=== PATIENT | male | born 1990 | race Hispanic/Latino ===

== ENCOUNTER 2017-01-28 11:54 | Inpatient (IN) | payer BC ==
--- NOTE | 2017-01-28 12:39 | ED PDOC ---
Upper Extremity Pain/Injury Time Seen by Provider: 01/28/17 12:03 Chief Complaint (Nursing): Upper Extremity Problem/Injury Chief Complaint (Provider): Left Forearm Swelling History Per: Patient History/Exam Limitations: no limitations Onset/Duration Of Symptoms: Days (2 days) Current Symptoms Are (Timing): Still Present Additional Complaint(s): Leif Uribe, a 26 year old male, presents to the ED with atraumatic left forearm swelling, which he has been experiencing for 2 days. The patient states that last week he started boxing training but reports no trauma to the area. He reports that there is no associated pain or numbness. The patient reports that in 2008 he had an ablation surgery for his SVT. Denies chest pain, palpitations and shortness of breath, fever, trauma and history of thromboembolic disease. Past Medical History Reviewed: Historical Data, Nursing Documentation, Vital Signs Vital Signs: Last Vital Signs Temp 98.3 F 01/28/17 11:58 Pulse 97 H 01/28/17 11:58 Resp 18 01/28/17 11:58 BP 130/70 01/28/17 11:58 Pulse Ox 99 01/28/17 11:58 - Medical History PMH: No Chronic Diseases - Surgical History Other surgeries: Ablation surgery for SVT - Family History Family History: States: Unknown Family Hx - Immunization History Hx Tetanus Toxoid Vaccination: No Hx Influenza Vaccination: No Hx Pneumococcal Vaccination: No - Home Medications Home Medications: Ambulatory Orders Medication Instructions Recorded No Known Home Med 01/28/17 - Allergies Allergies/Adverse Reactions: Allergies Allergy/AdvReac Type Severity Reaction Status Date / Time No Known Allergies Allergy Verified 01/28/17 11:57 Review of Systems Constitutional: Negative for: Fever, Other (Denies trauma) Cardiovascular: Negative for: Chest Pain, Palpitations, Other (Denies history of thromboembolic disease.) Respiratory: Negative for: Shortness of Breath Musculoskeletal: Positive for: Other (Left Upper Extremity Swelling.) Physical Exam - Reviewed Nursing Documentation Reviewed: Yes Vital Signs Reviewed: Yes - Physical Exam Appears: Positive for: Non-toxic, No Acute Distress Head Exam: Positive for: ATRAUMATIC, NORMOCEPHALIC Skin: Positive for: Normal Color, Warm, Dry. Negative for: Rash (No rash to upper left extremity.), Cyanosis (No cyanosis to upper left forearm.) Pulses-Radial (L): 2+ Pulses-Radial (R): 2+ Extremity: Positive for: Normal ROM (Full range of motion actively to upper left extremity.), Capillary Refill (Capillary refills less than 2 seconds.), Swelling (Minimal left forearm swelling.), Other (No pitting or erythema to upper left forearm.). Negative for: Tenderness (No tenderness to upper left forearm.), Deformity Neurologic/Psych: Positive for: Alert, Oriented - Laboratory Results Result Diagrams: 01/28/17 14:20 01/28/17 14:20 - ECG O2 Sat by Pulse Oximetry: 99 (RA) Pulse Ox Interpretation: Normal - Radiology X-Ray: Interpreted by Me (L Forearm x-ray) X-Ray Interpretation: No Acute Disease - Progress ED Course And Treament: Pt. evaluated by Dr. Sumner who recommends CPK level. Labs ordered. CPK 9559. IV NS bolus x 2 given. Case d/w Dr. Madrigal, hospitalist covering for Dr. Shaw, and arrangements made for 23 hr observation. Medical Decision Making Medical Decision Makin:03 Initial Impression: 26 year old male presenting with upper left forearm swelling Initial Plan: * RAD Left forearm * US Duplex Upper left extremity vein Scribe Attestation Documented by Dominique Strickland acting as a scribe for Emanuel Nicole PA-C. Scribe Attestation All medical record entries made by the Scribe were at my direction and personally dictated by me. I have reviewed the chart and agree that the record accurately reflects my personal performance of the history, physical exam, medical decision making, and the department course for this patient. I have also personally directed, reviewed, and agree with the discharge instructions and disposition. Disposition - Clinical Impression Clinical Impression: Rhabdomyolysis, Transaminitis - Patient ED Disposition Is Patient to be Admitted: Yes - Disposition Disposition Time: 15:20 Condition: STABLE
--- NOTE | 2017-01-28 13:35 | RAD ---
PROCEDURE: Radiographs of the Left Forearm HISTORY: swelling COMPARISON: None available. TECHNIQUE: Frontal and lateral views obtained. FINDINGS: BONES: No fracture or destructive lesion. JOINT SPACES: Unremarkable. OTHER FINDINGS: None. IMPRESSION: Unremarkable radiographs of the left forearm.
[2017-01-28 14:44] LABS: ALB/GLOB RATIO 1.6 (1.0-2.1); ALKALINE PHOSPHATASE 58 U/L (38-126); ALT/SGPT 294 U/L (21-72); AST/SGOT 301 U/L (17-59); BILIRUBIN,TOTAL 0.5 mg/dl (0.2-1.3); BLOOD UREA NITROGEN 13 mg/dl (9-20); CALCIUM 9.5 mg/dL (8.4-10.2); CARBON DIOXIDE 32 mmol/L (22-30); CHLORIDE 99 mmol/L (98-107); GFR AFRICAN-AMERICAN > 60; GLUCOSE,RANDOM 116 mg/dL (75-110); POTASSIUM 4.6 MMOL/L (3.6-5.0); SODIUM 141 mmol/l (132-148); TOTAL PROTEIN 7.6 G/DL (6.3-8.2)
[2017-01-28 15:02] LABS: BASO % 0.1 % (0.0-2.0); EOS % 0.5 % (0.0-4.0); HEMATOCRIT 43.2 % (35.0-51.0); LYMPH # 1.3 K/uL (1.0-4.3); LYMPH % 18.4 % (20.0-40.0); MEAN CELL VOLUME 89.8 fl (80.0-94.0); MEAN CORPUSCULAR HEMOGLOBIN 29.2 pg (27.0-31.0); MEAN CORPUSCULAR HGB CONC 32.5 g/dL (33.0-37.0); MEAN PLATELET VOLUME 9.8 fl (7.2-11.7); MONO # 0.6 K/uL (0.0-0.8); NEUT # 4.9 K/uL (1.8-7.0); NRBC % 0.1 % (0.0-0.0); RED CELL DISTRIBUTION WIDTH 13.3 % (11.5-14.5); WHITE BLOOD COUNT 6.8 K/uL (4.8-10.8)
[2017-01-28] MEDS ORDERED: Sodium Chloride 0.9% 1,000 ML IV STA ×2 (15:17→15:22)
--- NOTE | 2017-01-28 15:27 | US ---
PROCEDURE: Left Upper Extremity Venous Duplex Exam HISTORY: swelling PRIORS: None. TECHNIQUE: Left upper extremity, internal jugular, subclavian, axillary, brachial, ulnar, radial, basilic and upper cephalic veins were evaluated. Flow was assessed with color Doppler, compressibility, assessment of phasic flow and augmentation response. Report prepared by medical office technologist. FINDINGS: LEFT: 1. Internal Jugular: 1.1. Compressibility - Fully compressible: Thrombus - None : Flow - Phasic: Augmentation -Normal: Reflux - None. 2. Subclavian: 2.1. Compressibility - Fully compressible: Thrombus - None : Flow - Phasic: Augmentation -Normal: Reflux - None. 3. Axillary: 3.1. Compressibility - Fully compressible: Thrombus - None : Flow - Phasic: Augmentation -Normal: Reflux - None. 4. Brachial: 4.1. Compressibility - Fully compressible: Thrombus - None: Flow - Phasic: Augmentation -Normal: Reflux - None. 5. Ulnar: 5.1. Compressibility - Fully compressible: Thrombus - None: Flow - Phasic: Augmentation -Normal: Reflux - None. 6. Radial: 6.1. Compressibility - Fully compressible: Thrombus - None: Flow - Phasic: Augmentation - Normal: Reflux - None. 7. Cephalic: 7.1. Compressibility - Fully compressible: Thrombus - None: Flow - Phasic: Augmentation -Normal: Reflux - None. 8. Basilic: 8.1. Compressibility - Fully compressible: Thrombus - None: Flow - Phasic: Augmentation -Normal: Reflux - None. OTHER FINDINGS: Left: None. IMPRESSION: Left: No evidence of vein thrombosis of the left upper extremity with excellent venous flow.
[2017-01-28 15:42] LABS: RBC URINE 1 /hpf (0-3); URINE BILIRUBIN NEGATIVE (NEGATIVE); URINE BLOOD NEGATIVE (NEGATIVE); URINE COLOR COLORLESS (YELLOW); URINE GLUCOSE (UA) NEG (Normal); URINE KETONE NEGATIVE (NEGATIVE); URINE LEUKOCYTE ESTERASE NEG Leu/uL (Negative); URINE PROTEIN NEGATIVE (NEGATIVE); URINE UROBILINOGEN 0.2-1.0 mg/dL (0.2-1.0); WBC URINE < 1 /hpf (0-5)
[2017-01-28] MEDS: Sodium Chloride 0.9% 1,000 ML IV SCH (17:23)
--- NOTE | 2017-01-28 17:25 | CP.PCM.HP ---
<Kye Gavin - Last Filed: 01/28/17 17:40> History of Present Illness - History of Present Illness History of Present Illness: 26 YO M w/ a h/o SVT s/p ablation in 2008 presents to the ER w/ complaint of increasing in the size of his left arm compared to his right arm. Denies any pain, numbness, tingling, weakness or cold sensation in either of his arms. He recently started working out in the last week. 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 He started working out on Tuesday and noticed a increase in the size of his left forearm on Tuesday, compared to the right arm, and the skin surrounding the left forearm started appearing tighter. He recently started taking a boxing class as well, but only hits a boxing bag and has not had any trauma or hits to himself. Denies blood or tea colored urine. He recently took a trip to [facility] [place] where he states he was dehydrated and had dark yellow colored urine. PMH: None PSH: SVT ablation Allergies: NKDA Med: None F/H: None S/H: Social drinker, is last drink was on Tuesday, denies any other recreational drug use. Present on Admission - Present on Admission Any Indicators Present on Admission: No History of DVT/PE: No History of Uncontrolled Diabetes: No Urinary Catheter: No Decubitus Ulcer Present: No Review of Systems - Review of Systems All systems: reviewed and no additional remarkable complaints except Past Patient History - Past Social History Smoking Status: Never Smoked - CARDIAC Other/Comment: hx svt - PSYCHIATRIC Hx Substance Use: No - SURGICAL HISTORY Other/Comment: cardiac ablation - ANESTHESIA Hx Anesthesia: Yes Hx Anesthesia Reactions: No Meds Allergies/Adverse Reactions: Allergies Allergy/AdvReac Type Severity Reaction Status Date / Time No Known Allergies Allergy Verified 01/28/17 11:57 Physical Exam - Constitutional Appears: No Acute Distress - Head Exam Head Exam: NORMAL INSPECTION - Eye Exam Eye Exam: Normal appearance - Neck Exam Neck exam: Positive for: Normal Inspection - Respiratory Exam Respiratory Exam: Clear to Auscultation Bilateral, NORMAL BREATHING PATTERN - Cardiovascular Exam Cardiovascular Exam: REGULAR RHYTHM, +S1, +S2 - GI/Abdominal Exam GI & Abdominal Exam: Normal Bowel Sounds, Soft. absent: Tenderness - Extremities Exam Extremities exam: Positive for: normal inspection. Negative for: tenderness Additional comments: Minimal left arm swelling. No cynosis to left arm. No tenderness, No erythema. Sensation intact - Pulses 2+ B/L Capilary refill <2 sec b/l - Neurological Exam Neurological exam: Alert, CN II-XII Intact, Oriented x3 Additional comments: Motor and sensation grossly intact Results - Vital Signs Recent Vital Signs: Last Vital Signs Temp 98.1 F 01/28/17 16:50 Pulse 77 01/28/17 16:50 Resp 18 01/28/17 16:50 BP 126/77 01/28/17 16:50 Pulse Ox 98 01/28/17 16:48 - Labs Result Diagrams: 01/28/17 14:20 01/28/17 14:20 Labs: Laboratory Results - last 24 hr 01/28/17 15:25 Urine Color Colorless Urine Clarity Clear Urine pH 7.0 Ur Specific [place] < 1.005 Urine Protein Negative Urine Glucose (UA) Neg Urine Ketones Negative Urine Blood Negative Urine Nitrate Negative Urine Bilirubin Negative Urine Urobilinogen 0.2-1.0 Ur Leukocyte Esterase Neg Urine RBC (Auto) 1 Urine Microscopic WBC < 1 Assessment & Plan - Assessment and Plan (Free Text) Assessment: 26 YO M which presents to the ER with increase in size of his left forearm, is found to have Rhabdomyolysis 1) Rhabdomyolysis - Most likely secondary to exercise - IV fluids: Normal saline @100ml after completing 2 L of fluids from ER - F/U w/ urine myoglobin - F/U w/ morning CPK - Low protein diet 2) Hx of SVT S/P ablation - Monitor Vitals Q8 3) Elevated AST/ALT - Could be secondary to exercise - Monitor LFT - Acute Hepatitis panel 4) Prophylaxis: - Pepcid 20 mg PO BID - Heparin 5,000 Q8H - SCD <Milton Madrigal - Last Filed: 01/28/17 19:38> Results - Vital Signs Recent Vital Signs: Last Vital Signs Temp 98.1 F 01/28/17 17:00 Pulse 84 01/28/17 17:00 Resp 18 01/28/17 17:46 BP 125/77 01/28/17 17:00 Pulse Ox 99 01/28/17 17:00 - Labs Result Diagrams: 01/28/17 14:20 01/28/17 14:20 Labs: Laboratory Results - last 24 hr 01/28/17 15:25 Urine Color Colorless Urine Clarity Clear Urine pH 7.0 Ur Specific [place] < 1.005 Urine Protein Negative Urine Glucose (UA) Neg Urine Ketones Negative Urine Blood Negative Urine Nitrate Negative Urine Bilirubin Negative Urine Urobilinogen 0.2-1.0 Ur Leukocyte Esterase Neg Urine RBC (Auto) 1 Urine Microscopic WBC < 1 Attending/Attestation - Attestation I have personally seen and examined this patient.: Yes I have fully participated in the care of the patient.: Yes I have reviewed all pertinent clinical information: Yes Notes (Text): 01/28/17 19:36 Patient was seen and examined with Diesel Service Journeyman History, Physical, Assessment, Plan, and Orders were thoroughly gone over with [employer] Service Journeyman Dr. Gavin. Milton Madrigal D.O.
[2017-01-29] MEDS: Sodium Chloride 0.9% 1,000 ML IV SCH ×5 (04:13→23:10)
--- NOTE | 2017-01-29 09:59 | CP.PCM.PN ---
Subjective - Date & Time of Evaluation Date of Evaluation: 01/29/17 Time of Evaluation: 09:55 - Subjective Subjective: pt seen and examined bedside, feeling better arms slightly sore, however no cp no sob urinating well vss nad Objective - Vital Signs/Intake and Output Vital Signs (last 24 hours): Temp Pulse Resp BP Pulse Ox 97.9 F 79 18 129/67 100 01/29/17 08:15 01/29/17 08:15 01/29/17 08:15 01/29/17 08:15 01/29/17 08:15 - Medications Medications: Current Medications Famotidine (Pepcid) 20 mg PO BID [facility] Last Admin: 01/28/17 17:24 Dose: 20 mg Heparin Sodium (Porcine) (Heparin) 5,000 units SC Q8 [facility] PRN Reason: Protocol Last Admin: 01/29/17 01:21 Dose: 5,000 units Sodium Chloride (Sodium Chloride 0.9%) 1,000 mls @ 250 mls/hr IV .Q4H [facility] Stop: 01/29/17 16:36 - Constitutional Appears: Non-toxic, No Acute Distress - Head Exam Head Exam: ATRAUMATIC, NORMOCEPHALIC - Eye Exam Eye Exam: EOMI, Normal appearance, PERRL Pupil Exam: NORMAL ACCOMODATION - ENT Exam ENT Exam: Mucous Membranes Moist, Normal Oropharynx - Neck Exam Neck Exam: Full ROM, Normal Inspection - Respiratory Exam Respiratory Exam: Clear to Ausculation Bilateral, NORMAL BREATHING PATTERN - Cardiovascular Exam Cardiovascular Exam: RRR, +S1, +S2 - GI/Abdominal Exam GI & Abdominal Exam: Soft, Normal Bowel Sounds. absent: Tenderness, Mass - Extremities Exam Extremities Exam: Normal Capillary Refill, Normal Inspection - Back Exam Back Exam: absent: CVA tenderness (L), CVA tenderness (R) - Neurological Exam Neurological Exam: Alert, Awake, Oriented x3 - Psychiatric Exam Psychiatric exam: Normal Affect, Normal Mood - Skin Skin Exam: Dry, Warm Assessment and Plan - Assessment and Plan (Free Text) Plan: 26 YO M which presents to the ER with increase in size of his left forearm, is found to have Rhabdomyolysis 1) Rhabdomyolysis - secondary to exercise - IV fluids: Normal saline @250 ml - received 2 L in ER - F/U w/ morning CPK - Low protein diet - CK improved today to 6K will repeat tomrrow 2) Hx of SVT S/P ablation - Monitor Vitals Q8 3) Elevated AST/ALT - Could be secondary to exercise - Monitor LFT - Acute Hepatitis panel 4) Prophylaxis: - Pepcid 20 mg PO BID - Heparin 5,000 Q8H - SCD
[2017-01-30] MEDS: Sodium Chloride 0.9% 1,000 ML IV SCH ×5 (05:42→22:08)
[2017-01-30 06:18] LABS: ALKALINE PHOSPHATASE 50 U/L (38-126); ALT/SGPT 178 U/L (21-72); AST/SGOT 99 U/L (17-59); BILIRUBIN,TOTAL < 0.1 mg/dl (0.2-1.3); BLOOD UREA NITROGEN 10 mg/dl (9-20); CALCIUM 8.5 mg/dL (8.4-10.2); CARBON DIOXIDE 27 mmol/L (22-30); CHLORIDE 107 mmol/L (98-107); GFR AFRICAN-AMERICAN > 60; GLUCOSE,RANDOM 90 mg/dL (75-110); POTASSIUM 4.3 MMOL/L (3.6-5.0); SODIUM 142 mmol/l (132-148); TOTAL PROTEIN 5.9 G/DL (6.3-8.2)
[2017-01-30 06:19] LABS: ALB/GLOB RATIO 1.5 (1.0-2.1)
--- NOTE | 2017-01-30 09:07 | CP.PCM.DIS ---
Provider - Provider Date of Admission: 01/29/17 09:02 Attending physician: Milton Madrigal MD Time Spent in preparation of Discharge (in minutes): 20 Diagnosis - Discharge Diagnosis (1) Rhabdomyolysis Status: Acute (2) Transaminitis Status: Acute Hospital Course - Lab Results Lab Results: Most Recent Lab Values WBC 6.8 K/uL (4.8-10.8) 01/28/17 14:20 RBC 4.81 Mil/uL (4.40-5.90) 01/28/17 14:20 Hgb 14.1 g/dL (12.0-18.0) 01/28/17 14:20 Hct 43.2 % (35.0-51.0) 01/28/17 14:20 MCV 89.8 fl (80.0-94.0) 01/28/17 14:20 MCH 29.2 pg (27.0-31.0) 01/28/17 14:20 MCHC 32.5 g/dL (33.0-37.0) L 01/28/17 14:20 RDW 13.3 % (11.5-14.5) 01/28/17 14:20 Plt Count 148 K/uL (130-400) 01/28/17 14:20 MPV 9.8 fl (7.2-11.7) 01/28/17 14:20 Neut % (Auto) 72.0 % (50.0-75.0) 01/28/17 14:20 Lymph % (Auto) 18.4 % (20.0-40.0) L 01/28/17 14:20 Jenkins % (Auto) 9.0 % (0.0-10.0) 01/28/17 14:20 Eos % (Auto) 0.5 % (0.0-4.0) 01/28/17 14:20 Baso % (Auto) 0.1 % (0.0-2.0) 01/28/17 14:20 Neut # 4.9 K/uL (1.8-7.0) 01/28/17 14:20 Lymph # 1.3 K/uL (1.0-4.3) 01/28/17 14:20 Jenkins # 0.6 K/uL (0.0-0.8) 01/28/17 14:20 Eos # 0.0 K/uL (0.0-0.7) 01/28/17 14:20 Baso # 0.0 K/uL (0.0-0.2) 01/28/17 14:20 Sodium 142 mmol/l (132-148) 01/30/17 05:50 Potassium 4.3 MMOL/L (3.6-5.0) 01/30/17 05:50 Chloride 107 mmol/L (98-107) 01/30/17 05:50 Carbon Dioxide 27 mmol/L (22-30) 01/30/17 05:50 Anion Gap 12 (10-20) 01/30/17 05:50 BUN 10 mg/dl (9-20) 01/30/17 05:50 Creatinine 0.8 mg/dL (0.8-1.5) 01/30/17 05:50 Est GFR ( Amer) > 60 01/30/17 05:50 Est GFR (Non-Af Amer) > 60 01/30/17 05:50 Random Glucose 90 mg/dL (75-110) 01/30/17 05:50 Calcium 8.5 mg/dL (8.4-10.2) 01/30/17 05:50 Total Bilirubin < 0.1 mg/dl (0.2-1.3) L 01/30/17 05:50 AST 99 U/L (17-59) H D 01/30/17 05:50 ALT 178 U/L (21-72) H D 01/30/17 05:50 Alkaline Phosphatase 50 U/L (38-126) 01/30/17 05:50 Total Creatine Kinase 2520 U/L (55-170) H 01/30/17 05:50 Myoglobin 318 mcg/L (< or = 95) H 01/28/17 15:30 Total Protein 5.9 G/DL (6.3-8.2) L 01/30/17 05:50 Albumin 3.5 g/dL (3.5-5.0) D 01/30/17 05:50 Globulin 2.4 gm/dL (2.2-3.9) 01/30/17 05:50 Albumin/Globulin Ratio 1.5 (1.0-2.1) 01/30/17 05:50 Urine Color Colorless (YELLOW) 01/28/17 15:25 Urine Clarity Clear (Clear) 01/28/17 15:25 Urine pH 7.0 (5.0-8.0) 01/28/17 15:25 Ur Specific [place] < 1.005 (1.003-1.030) 01/28/17 15:25 Urine Protein Negative mg/dL (NEGATIVE) 01/28/17 15:25 Urine Glucose (UA) Neg mg/dL (Normal) 01/28/17 15:25 Urine Ketones Negative mg/dL (NEGATIVE) 01/28/17 15:25 Urine Blood Negative (NEGATIVE) 01/28/17 15:25 Urine Nitrate Negative (NEGATIVE) 01/28/17 15:25 Urine Bilirubin Negative (NEGATIVE) 01/28/17 15:25 Urine Urobilinogen 0.2-1.0 mg/dL (0.2-1.0) 01/28/17 15:25 Ur Leukocyte Esterase Neg Magui/uL (Negative) 01/28/17 15:25 Urine RBC (Auto) 1 /hpf (0-3) 01/28/17 15:25 Urine Microscopic WBC < 1 /hpf (0-5) 01/28/17 15:25 Hepatitis A IgM Ab Negative (NEGATIVE) 01/28/17 16:00 Hep Bs Antigen Negative (NEGATIVE) 01/28/17 16:00 Hep B Core IgM Ab Negative (NEGATIVE) 01/28/17 16:00 Hepatitis C Antibody Negative (NEGATIVE) 01/28/17 16:00 - Hospital Course Hospital Course: 26M PMH h/o SVT s/p ablation in 2008 presented to the ER w/ complaint of increasing in the size of his left arm compared to his right arm. Denies any pain, numbness, tingling, weakness or cold sensation in either of his arms. He recently started working out in the last week. 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 He started working out on Tuesday and noticed a increase in the size of his left forearm on Tuesday, compared to the right arm, and the skin surrounding the left forearm started appearing tighter. He recently started taking a boxing class as well, but only hits a boxing bag and has not had any trauma or hits to himself. Denies blood or tea colored urine. He recently took a trip to [facility] where he states he was dehydrated and had dark yellow colored urine. 1) Rhabdomyolysis with Arm pain and swelling - secondary to exercise, NV intact. - IV fluids: Normal saline @250 ml - received 2 L in ER - CK trended down nicely - Low protein diet 2) Hx of SVT S/P ablation - Monitor Vitals Q8 - stable 3) Elevated AST/ALT - Could be secondary to exercise - trending down nicely - follow up with PCP Discharge Exam - Head Exam Head Exam: ATRAUMATIC, NORMOCEPHALIC - Eye Exam Eye Exam: EOMI, Normal appearance, PERRL Pupil Exam: NORMAL ACCOMODATION - ENT Exam ENT Exam: Mucous Membranes Moist, Normal Oropharynx - Neck Exam Neck exam: Full Rom, Normal Inspection - Respiratory Exam Respiratory Exam: Clear to PA & Lateral, NORMAL BREATHING PATTERN - Cardiovascular Exam Cardiovascular Exam: RRR, +S1, +S2 - GI/Abdominal Exam GI & Abdominal Exam: Normal Bowel Sounds, Soft. absent: Mass, Organomegaly, Tenderness - Extremities Exam Extremities exam: normal capillary refill, pedal pulses present - Back Exam Back exam: absent: CVA tenderness (L), CVA tenderness (R) - Neurological Exam Neurological exam: Alert, Oriented x3 - Psychiatric Exam Psychiatric exam: Normal Affect, Normal Mood - Skin Skin Exam: Dry, Warm Discharge Plan - Follow Up Plan Condition: STABLE Disposition: HOME/ ROUTINE Additional Instructions: Patient to resume activity as tolerated. Drink plenty of water daily. No medications on discharge. Follow up with primary care physician. If you do not have one, follow up at the [facility]. Return to ER if condition worsens, or new symptoms arise. Referrals: [facility] [Provider Group]
--- NOTE | 2017-01-30 17:01 | CP.PCM.PN ---
Subjective - Date & Time of Evaluation Date of Evaluation: 01/30/17 Time of Evaluation: 16:59 - Subjective Subjective: patient seen examined bedside. doign well, ambulating awaiting CK levels to decrease. continue on aggressive hydration. will lasix x1 for edema. vss nad. Objective - Vital Signs/Intake and Output Vital Signs (last 24 hours): Temp Pulse Resp BP Pulse Ox 98.2 F 68 20 118/71 97 01/30/17 08:19 01/30/17 08:19 01/30/17 08:19 01/30/17 08:19 01/30/17 08:19 - Medications Medications: Current Medications Famotidine (Pepcid) 20 mg PO BID [facility] Last Admin: 01/30/17 08:45 Dose: 20 mg Heparin Sodium (Porcine) (Heparin) 5,000 units SC Q8 [facility] PRN Reason: Protocol Last Admin: 01/30/17 08:45 Dose: 5,000 units Sodium Chloride (Sodium Chloride 0.9%) 1,000 mls @ 250 mls/hr IV .Q4H [facility] Stop: 01/30/17 22:47 Last Admin: 01/30/17 13:44 Dose: Not Given - Labs Labs: 01/30/17 05:50 - Constitutional Appears: Non-toxic, No Acute Distress - Head Exam Head Exam: ATRAUMATIC, NORMOCEPHALIC - Eye Exam Eye Exam: EOMI, Normal appearance, PERRL Pupil Exam: NORMAL ACCOMODATION - ENT Exam ENT Exam: Mucous Membranes Moist, Normal Oropharynx - Neck Exam Neck Exam: Full ROM, Normal Inspection - Respiratory Exam Respiratory Exam: Clear to Ausculation Bilateral, NORMAL BREATHING PATTERN - Cardiovascular Exam Cardiovascular Exam: RRR, +S1, +S2 - GI/Abdominal Exam GI & Abdominal Exam: Soft, Normal Bowel Sounds. absent: Tenderness, Mass, Organomegaly - Extremities Exam Extremities Exam: Normal Capillary Refill. absent: Pedal Edema - Back Exam Back Exam: absent: CVA tenderness (L), CVA tenderness (R) - Neurological Exam Neurological Exam: Alert, Awake, Normal Gait, Oriented x3 - Psychiatric Exam Psychiatric exam: Normal Affect, Normal Mood - Skin Skin Exam: Dry, Warm Assessment and Plan (1) Rhabdomyolysis Status: Acute (2) Transaminitis Status: Acute - Assessment and Plan (Free Text) Plan: 26M PMH h/o SVT s/p ablation in 2008 presented to the ER w/ complaint of increasing in the size of his left arm compared to his right arm. Denies any pain, numbness, tingling, weakness or cold sensation in either of his arms. He recently started working out in the last week. 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 He started working out on Tuesday and noticed a increase in the size of his left forearm on Tuesday, compared to the right arm, and the skin surrounding the left forearm started appearing tighter. He recently started taking a boxing class as well, but only hits a boxing bag and has not had any trauma or hits to himself. Denies blood or tea colored urine. He recently took a trip to [facility] where he states he was dehydrated and had dark yellow colored urine. 1) Rhabdomyolysis with Arm pain and swelling - secondary to exercise, NV intact. - IV fluids: Normal saline @250 ml , lasix x1 for mild edema - received 2 L in ER - CK trended down nicely, however still over 2K - repeat CPK again tomorrow - Low protein diet 2) Hx of SVT S/P ablation - Monitor Vitals Q8 - stable 3) Elevated AST/ALT - Could be secondary to exercise - trending down nicely - follow up with PCP
[2017-01-31] MEDS: Sodium Chloride 0.9% 1,000 ML IV SCH ×4 (00:24→12:23)
[2017-01-31 06:49] LABS: ALB/GLOB RATIO 1.4 (1.0-2.1); ALKALINE PHOSPHATASE 47 U/L (38-126); ALT/SGPT 164 U/L (21-72); AST/SGOT 88 U/L (17-59); BILIRUBIN,TOTAL 0.3 mg/dl (0.2-1.3); BLOOD UREA NITROGEN 13 mg/dl (9-20); CALCIUM 8.5 mg/dL (8.4-10.2); CARBON DIOXIDE 27 mmol/L (22-30); CHLORIDE 105 mmol/L (98-107); GFR AFRICAN-AMERICAN > 60; GLUCOSE,RANDOM 89 mg/dL (75-110); POTASSIUM 4.1 MMOL/L (3.6-5.0); SODIUM 141 mmol/l (132-148)
--- NOTE | 2017-01-31 16:26 | CP.PCM.DIS ---
Provider - Provider Date of Admission: 01/29/17 09:02 Attending physician: Milton Madrigal MD Time Spent in preparation of Discharge (in minutes): 30 Diagnosis - Discharge Diagnosis (1) Rhabdomyolysis Status: Acute (2) Transaminitis Status: Acute Hospital Course - Lab Results Lab Results: Most Recent Lab Values WBC 6.8 K/uL (4.8-10.8) 01/28/17 14:20 RBC 4.81 Mil/uL (4.40-5.90) 01/28/17 14:20 Hgb 14.1 g/dL (12.0-18.0) 01/28/17 14:20 Hct 43.2 % (35.0-51.0) 01/28/17 14:20 MCV 89.8 fl (80.0-94.0) 01/28/17 14:20 MCH 29.2 pg (27.0-31.0) 01/28/17 14:20 MCHC 32.5 g/dL (33.0-37.0) L 01/28/17 14:20 RDW 13.3 % (11.5-14.5) 01/28/17 14:20 Plt Count 148 K/uL (130-400) 01/28/17 14:20 MPV 9.8 fl (7.2-11.7) 01/28/17 14:20 Neut % (Auto) 72.0 % (50.0-75.0) 01/28/17 14:20 Lymph % (Auto) 18.4 % (20.0-40.0) L 01/28/17 14:20 [place] % (Auto) 9.0 % (0.0-10.0) 01/28/17 14:20 Eos % (Auto) 0.5 % (0.0-4.0) 01/28/17 14:20 Baso % (Auto) 0.1 % (0.0-2.0) 01/28/17 14:20 Neut # 4.9 K/uL (1.8-7.0) 01/28/17 14:20 Lymph # 1.3 K/uL (1.0-4.3) 01/28/17 14:20 [place] # 0.6 K/uL (0.0-0.8) 01/28/17 14:20 Eos # 0.0 K/uL (0.0-0.7) 01/28/17 14:20 Baso # 0.0 K/uL (0.0-0.2) 01/28/17 14:20 Sodium 141 mmol/l (132-148) 01/31/17 05:35 Potassium 4.1 MMOL/L (3.6-5.0) 01/31/17 05:35 Chloride 105 mmol/L (98-107) 01/31/17 05:35 Carbon Dioxide 27 mmol/L (22-30) 01/31/17 05:35 Anion Gap 13 (10-20) 01/31/17 05:35 BUN 13 mg/dl (9-20) 01/31/17 05:35 Creatinine 0.9 mg/dL (0.8-1.5) 01/31/17 05:35 Est GFR ( Amer) > 60 01/31/17 05:35 Est GFR (Non-Af Amer) > 60 01/31/17 05:35 Random Glucose 89 mg/dL (75-110) 01/31/17 05:35 Calcium 8.5 mg/dL (8.4-10.2) 01/31/17 05:35 Total Bilirubin 0.3 mg/dl (0.2-1.3) 01/31/17 05:35 AST 88 U/L (17-59) H 01/31/17 05:35 ALT 164 U/L (21-72) H 01/31/17 05:35 Alkaline Phosphatase 47 U/L (38-126) 01/31/17 05:35 Total Creatine Kinase 1147 U/L (55-170) H 01/31/17 15:25 Myoglobin 318 mcg/L (< or = 95) H 01/28/17 15:30 Total Protein 6.0 G/DL (6.3-8.2) L 01/31/17 05:35 Albumin 3.6 g/dL (3.5-5.0) 01/31/17 05:35 Globulin 2.5 gm/dL (2.2-3.9) 01/31/17 05:35 Albumin/Globulin Ratio 1.4 (1.0-2.1) 01/31/17 05:35 Urine Color Colorless (YELLOW) 01/28/17 15:25 Urine Clarity Clear (Clear) 01/28/17 15:25 Urine pH 7.0 (5.0-8.0) 01/28/17 15:25 Ur Specific [place] < 1.005 (1.003-1.030) 01/28/17 15:25 Urine Protein Negative mg/dL (NEGATIVE) 01/28/17 15:25 Urine Glucose (UA) Neg mg/dL (Normal) 01/28/17 15:25 Urine Ketones Negative mg/dL (NEGATIVE) 01/28/17 15:25 Urine Blood Negative (NEGATIVE) 01/28/17 15:25 Urine Nitrate Negative (NEGATIVE) 01/28/17 15:25 Urine Bilirubin Negative (NEGATIVE) 01/28/17 15:25 Urine Urobilinogen 0.2-1.0 mg/dL (0.2-1.0) 01/28/17 15:25 Ur Leukocyte Esterase Neg Magui/uL (Negative) 01/28/17 15:25 Urine RBC (Auto) 1 /hpf (0-3) 01/28/17 15:25 Urine Microscopic WBC < 1 /hpf (0-5) 01/28/17 15:25 Hepatitis A IgM Ab Negative (NEGATIVE) 01/28/17 16:00 Hep Bs Antigen Negative (NEGATIVE) 01/28/17 16:00 Hep B Core IgM Ab Negative (NEGATIVE) 01/28/17 16:00 Hepatitis C Antibody Negative (NEGATIVE) 01/28/17 16:00 - Hospital Course Hospital Course: 26M PMH h/o SVT s/p ablation in 2008 presented to the ER w/ complaint of increasing in the size of his left arm compared to his right arm. Denies any pain, numbness, tingling, weakness or cold sensation in either of his arms. He recently started working out in the last week. 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 He started working out on Tuesday and noticed a increase in the size of his left forearm on Tuesday, compared to the right arm, and the skin surrounding the left forearm started appearing tighter. He recently started taking a boxing class as well, but only hits a boxing bag and has not had any trauma or hits to himself. Denies blood or tea colored urine. He recently took a trip to [facility] where he states he was dehydrated and had dark yellow colored urine. 1) Rhabdomyolysis with Arm pain and swelling - secondary to exercise, NV intact. - IV fluids: Normal saline @250 ml , lasix x1 for mild edema - received 2 L in ER - CK trended down nicely, currently appx 1100 STABLE FOR DISCHARGE HOME - repeat CPK again tomorrow - Low protein diet 2) Hx of SVT S/P ablation - Monitor Vitals Q8 - stable 3) Elevated AST/ALT - Could be secondary to exercise - trending down nicely - follow up with PCP Discharge Exam - Head Exam Head Exam: ATRAUMATIC, NORMOCEPHALIC - Eye Exam Eye Exam: EOMI, Normal appearance, PERRL Pupil Exam: NORMAL ACCOMODATION - ENT Exam ENT Exam: Mucous Membranes Moist, Normal Oropharynx - Respiratory Exam Respiratory Exam: Clear to PA & Lateral, NORMAL BREATHING PATTERN, UNREMARKABLE - Cardiovascular Exam Cardiovascular Exam: RRR, +S1, +S2. absent: Gallop, Rubs - GI/Abdominal Exam GI & Abdominal Exam: Normal Bowel Sounds, Soft. absent: Mass, Organomegaly, Tenderness - Extremities Exam Extremities exam: normal capillary refill, pedal pulses present - Back Exam Back exam: absent: CVA tenderness (L), CVA tenderness (R) - Neurological Exam Neurological exam: Alert, Oriented x3 - Psychiatric Exam Psychiatric exam: Normal Affect, Normal Mood - Skin Skin Exam: Dry, Warm Discharge Plan - Follow Up Plan Condition: STABLE Disposition: HOME/ ROUTINE Additional Instructions: Patient to resume activity as tolerated. Drink plenty of water daily. No medications on discharge. Follow up with primary care physician. If you do not have one, follow up at the [facility]. Return to ER if condition worsens, or new symptoms arise. Referrals: [facility] [Provider Group]
[2017-01-31 16:34] VITALS: BP 117/69; PULSE 79; RESP 18; TEMP 98.6; O2SAT 99
== END 2017-01-31 17:35 | disposition home or self-care (01) | DRG 558 ==
LOC: H.ER 11:54 → H.ERHOLD 15:20 → H.MEDSURG1 17:02 → OBSVTOIN 01-29 09:02
PROVIDERS: ADMIT Family Medicine; ATTEND Family Medicine
DX: M62.82 Rhabdomyolysis (principal); R74.0 Nonspecific elevation of levels of transaminase and lactic acid dehydrogenase [LDH]; R79.89 Other specified abnormal findings of blood chemistry

== ENCOUNTER 2017-03-31 20:15 | Observation (INO) | payer BC ==
[2017-03-31] MEDS ORDERED: Sodium Chloride 0.9% 1,000 ML IV STA (20:37)
[2017-03-31 21:04] LABS: BASO % 0.1 % (0.0-2.0); EOS # 0.1 K/uL (0.0-0.7); EOS % 0.8 % (0.0-4.0); HEMOGLOBIN 13.9 g/dL (12.0-18.0); LYMPH # 1.8 K/uL (1.0-4.3); LYMPH % 27.1 % (20.0-40.0); MEAN CELL VOLUME 89.6 fl (80.0-94.0); MEAN CORPUSCULAR HEMOGLOBIN 29.6 pg (27.0-31.0); MEAN CORPUSCULAR HGB CONC 33.1 g/dL (33.0-37.0); MONO # 0.9 K/uL (0.0-0.8); MONO % 13.2 % (0.0-10.0); NEUT # 3.8 K/uL (1.8-7.0); NEUT % 58.8 % (50.0-75.0); RBC 4.71 Mil/uL (4.40-5.90); RED CELL DISTRIBUTION WIDTH 13.5 % (11.5-14.5); WHITE BLOOD COUNT 6.5 K/uL (4.8-10.8)
[2017-03-31 21:12] LABS: URINE BILIRUBIN NEGATIVE (NEGATIVE); URINE BLOOD NEGATIVE (NEGATIVE); URINE CLARITY CLEAR (Clear); URINE COLOR COLORLESS (YELLOW); URINE GLUCOSE (UA) NEG (Normal); URINE LEUKOCYTE ESTERASE NEG Leu/uL (Negative); URINE NITRATE NEGATIVE (NEGATIVE); URINE PROTEIN NEGATIVE (NEGATIVE); URINE UROBILINOGEN 0.2-1.0 mg/dL (0.2-1.0)
[2017-03-31 21:15] LABS: ALB/GLOB RATIO 1.7 (1.0-2.1); ALBUMIN 4.6 g/dL (3.5-5.0); ALT/SGPT 49 U/L (21-72); AST/SGOT 50 U/L (17-59); BLOOD UREA NITROGEN 17 mg/dl (9-20); CALCIUM 9.7 mg/dL (8.4-10.2); GFR AFRICAN-AMERICAN > 60; GFR NON-AFRICAN AMERICAN > 60
--- NOTE | 2017-03-31 21:30 | ED PDOC ---
Lower Extremity Pain/Injury Time Seen by Provider: 03/31/17 20:23 Chief Complaint (Nursing): Lower Extremity Problem/Injury Chief Complaint (Provider): B/L Quadricep pain History Per: Patient History/Exam Limitations: no limitations Onset/Duration Of Symptoms: Hrs Current Symptoms Are (Timing): Still Present Additional Complaint(s): Leif Uribe, a 26 year old male, who has a past medical history of rhabdomyalgia and SVT post ablation presents to the ED complaining of bilateral quadricep soreness x1 day. The patient states that 3 months ago he was admitted for rhabdomyalgia. He reports that he has modified his exercise regimen and only began to do squats today. The patient reports that his soreness is out of proportion for the amount of exertion performed. Denies swelling to extremities , fever, cough, abdominal pain, chest pain, nausea, vomiting, diarrhea. Patient states he has been drinking adequate amounts of water. Past Medical History Reviewed: Historical Data, Nursing Documentation, Vital Signs Vital Signs: Last Vital Signs Temp 97.3 F L 03/31/17 20:17 Pulse 71 03/31/17 20:17 Resp 14 03/31/17 20:17 BP 137/67 03/31/17 20:17 Pulse Ox 100 03/31/17 20:17 - Medical History PMH: Denies: Chronic Kidney Disease Other PMH: Rhabdomyalgia, SVT post ablation - Surgical History Surgical History: No Surg Hx - Family History Family History: States: Unknown Family Hx - Social History Current smoker - smoking cessation education provided: No Alcohol: None Drugs: Denies - Immunization History Hx Tetanus Toxoid Vaccination: No Hx Influenza Vaccination: No Hx Pneumococcal Vaccination: No - Home Medications Home Medications: Ambulatory Orders Medication Instructions Recorded No Known Home Med 01/28/17 - Allergies Allergies/Adverse Reactions: Allergies Allergy/AdvReac Type Severity Reaction Status Date / Time No Known Allergies Allergy Verified 03/31/17 21:36 Review of Systems ROS Statement: Except As Marked, All Systems Reviewed And Found Negative Constitutional: Negative for: Fever Cardiovascular: Negative for: Chest Pain Respiratory: Negative for: Cough Gastrointestinal: Negative for: Nausea, Vomiting, Diarrhea Musculoskeletal: Positive for: Other (b/l quadricep soreness) Physical Exam - Reviewed Nursing Documentation Reviewed: Yes Vital Signs Reviewed: Yes - Physical Exam Appears: Positive for: Non-toxic, No Acute Distress Head Exam: Positive for: ATRAUMATIC, NORMAL INSPECTION, NORMOCEPHALIC Skin: Positive for: Normal Color, Warm, Dry. Negative for: Rash Eye Exam: Positive for: Normal appearance, EOMI, PERRL ENT: Positive for: Normal ENT Inspection Neck: Positive for: Normal, Painless ROM, Supple Cardiovascular/Chest: Positive for: Regular Rate, Rhythm, Chest Non Tender. Negative for: Murmur, Tachycardia Respiratory: Positive for: Normal Breath Sounds. Negative for: Crackles, Rales , Rhonchi, Wheezing, Respiratory Distress Gastrointestinal/Abdominal: Positive for: Normal Exam, Bowel Sounds, Soft. Negative for: Tenderness, Mass, Guarding, Rebound Back: Positive for: Normal Inspection. Negative for: L CVA Tenderness, R CVA Tenderness, Vertebral Tenderness Extremity: Positive for: Normal ROM, Tenderness (bilateral quadricep soreness). Negative for: Pedal Edema, Calf Tenderness, Deformity, Swelling Neurologic/Psych: Positive for: Alert, Oriented, Gait - Laboratory Results Result Diagrams: 03/31/17 20:48 03/31/17 20:48 - ECG O2 Sat by Pulse Oximetry: 100 (RA) Pulse Ox Interpretation: Normal Medical Decision Making Medical Decision Makin Initial Impression: 26 year old male presenting with b/l quadricep soreness in setting of recent rhabdomyalgia Initial Plan: * EKG * CMP * Creatinine Phosphokinase * Udip * CBC * Myoglobin Urine * NS 1000mls IV 1000mls/hr * Urinalysis * Reevaluation 2138 Labd reviewed show moderate elevation in CPK above 800. Patient will be placed on hospitalized observation for rhabdomyalgia. Case discussed with Dr. Cary. __ Scribe Attestation Documented by Dominique Strickland acting as a scribe for Tasha Juarez MD. Provider Attestation All medical record entries made by the Scribe were at my direction and personally dictated by me. I have reviewed the chart and agree that the record accurately reflects my personal performance of the history, physical exam, medical decision making, and the department course for this patient. I have also personally directed, reviewed, and agree with the discharge instructions and disposition. Disposition - Clinical Impression Clinical Impression: Rhabdomyolysis - Patient ED Disposition Is Patient to be Admitted: Yes Discussed With DrBarrett: Wes Cary Counseled Patient/Family Regarding: Studies Performed, Diagnosis - Disposition Disposition Time: 21:39 Condition: GUARDED - Pt Status Changed To: Hospital Disposition Of: Observation
--- NOTE | 2017-03-31 22:15 | CP.PCM.HP ---
History of Present Illness - History of Present Illness History of Present Illness: PCP: Philippe Shaw MD Chief Complaint: Pains to both Quadriceps HPI: 26 years old male with hx of SVT s/p ablation, last admitted to the [facility] on 01/28/17 and discharged on 01/31/17 with Dx of Rhabdomyolysis , Comes with one day of soreness to anterior aspect of both thighs. This started after he did his exercises . The soreness is out of proportion for the amount of exercises that he did. No swelling of the thighs, no fever, SOB, chest pain, nausea, vomits nor fever. No diarrhea nor urinary symptoms. PMH: SVT; Rhabdomyolysis PSH: Ablation of SVT SH: Denies Cigarette Smoking; Alcohol use socially; No illegal drug use; Live alone; FH: Unknown family hx Allergies: NKDA Medications: MV; Fish Oil Present on Admission - Present on Admission Any Indicators Present on Admission: No History of DVT/PE: No History of Uncontrolled Diabetes: No Urinary Catheter: No Decubitus Ulcer Present: No Review of Systems - Constitutional Constitutional: absent: Anorexia, Chills, Fever, Headache - EENT Eyes: absent: Photophobia, Requires Corrective Lenses Nose/Mouth/Throat: absent: Epistaxis, Nasal Congestion, Nasal Discharge, Sinus Pain, Sinus Pressure - Cardiovascular Cardiovascular: absent: Chest Pain, Dyspnea, Edema - Respiratory Respiratory: absent: Cough, Dyspnea, Wheezing, Stridor - Gastrointestinal Gastrointestinal: absent: Constipation, Diarrhea, Nausea, Vomiting - Genitourinary Genitourinary: absent: Dysuria, Flank Pain, Hematuria, Urinary Frequency - Musculoskeletal Musculoskeletal: Myalgias. absent: Arthralgias, Back Pain, Joint Swelling, Numbness Additional comments: Pain to both Thighs - Integumentary Integumentary: absent: Pruritus, Rash, Skin Ulcer, Sores, Striae, Swelling - Neurological Neurological: absent: Confusion, Focal Weakness, Weakness - Psychiatric Psychiatric: absent: Anxiety, Depression, Panic Attacks - Endocrine Endocrine: absent: Palpitations, Polydipsia, Polyphagia, Polyuria - Hematologic/Lymphatic Hematologic: absent: Easy Bleeding, Easy Bruising Past Patient History - Past Medical History & Family History Past Medical History?: Yes - Past Social History Smoking Status: Never Smoked Chewing Tobacco Use: No Cigar Use: No Alcohol: Social Drugs: Denies Home Situation {Lives}: Alone - CARDIAC Hx Cardiac Disorders: Yes Hx Cardia Arrhythmia: Yes Other/Comment: hx svt with ablation - PULMONARY Hx Respiratory Disorders: No - NEUROLOGICAL Hx Neurological Disorder: No - HEENT Hx HEENT Problems: No - RENAL Hx Chronic Kidney Disease: No - ENDOCRINE/METABOLIC Hx Endocrine Disorders: No - HEMATOLOGICAL/ONCOLOGICAL Hx Blood Disorders: No - INTEGUMENTARY Hx Dermatological Problems: No - MUSCULOSKELETAL/RHEUMATOLOGICAL Hx Musculoskeletal Disorders: No Hx Falls: No - GASTROINTESTINAL Hx Gastrointestinal Disorders: No - GENITOURINARY/GYNECOLOGICAL Hx Genitourinary Disorders: No - PSYCHIATRIC Hx Psychophysiologic Disorder: No Hx Substance Use: No - SURGICAL HISTORY Hx Surgeries: Yes Other/Comment: cardiac ablation 2009 - ANESTHESIA Hx Anesthesia: Yes Hx Anesthesia Reactions: No Meds Allergies/Adverse Reactions: Allergies Allergy/AdvReac Type Severity Reaction Status Date / Time No Known Allergies Allergy Verified 03/31/17 21:36 Physical Exam - Constitutional Appears: No Acute Distress - Head Exam Head Exam: ATRAUMATIC, NORMAL INSPECTION, NORMOCEPHALIC - Eye Exam Eye Exam: EOMI, Normal appearance Pupil Exam: NORMAL ACCOMODATION, PERRL - ENT Exam ENT Exam: Mucous Membranes Moist, Normal Exam, Normal External Ear Exam, Normal Oropharynx - Neck Exam Neck exam: Positive for: Full Rom, Normal Inspection. Negative for: Lymphadenopathy, Tenderness - Respiratory Exam Respiratory Exam: Clear to Auscultation Bilateral. absent: Rales, Rhonchi, Wheezes - Cardiovascular Exam Cardiovascular Exam: REGULAR RHYTHM, RRR, +S1, +S2 - GI/Abdominal Exam GI & Abdominal Exam: Normal Bowel Sounds, Soft. absent: Mass, Organomegaly, Tenderness - Rectal Exam Rectal Exam: Deferred - Extremities Exam Extremities exam: Positive for: full ROM, normal inspection. Negative for: calf tenderness, pedal edema - Back Exam Back exam: NORMAL INSPECTION. absent: CVA tenderness (L), CVA tenderness (R) - Neurological Exam Neurological exam: Alert, CN II-XII Intact, Oriented x3, Reflexes Normal - Psychiatric Exam Psychiatric exam: Normal Affect, Normal Mood - Skin Skin Exam: Dry, Intact, Normal Color, Warm Results - Vital Signs Recent Vital Signs: Last Vital Signs Temp 97.3 F L 03/31/17 20:17 Pulse 75 03/31/17 21:55 Resp 18 03/31/17 21:55 BP 128/58 L 03/31/17 21:55 Pulse Ox 100 03/31/17 21:55 - Labs Result Diagrams: 03/31/17 20:48 03/31/17 20:48 Assessment & Plan - Assessment and Plan (Free Text) Plan: 26 years old male with hx of SVT s/p ablation, last admitted to the [facility] on 01/28/17 and discharged on 01/31/17 with Dx of Rhabdomyolysis, Comes with one day of soreness to anterior aspect of both thighs. This started after he did his exercises . #. Early Rhabdomyolysis. - Patient received 1 Liter of NS in ED - Continue with IV fluid NS at 200mls/hr - Follow CPK #. Myalgias of the Quadriceps bilaterally - Pain management with Tylenol #. Code Status: Full - Date & Time Date: 03/31/17 Time: 22:15
[2017-03-31] MEDS: Sodium Chloride 0.9% 1,000 ML IV SCH (22:34)
[2017-04-01] MEDS: Sodium Chloride 0.9% 1,000 ML IV SCH (02:55)
[2017-04-01 08:21] VITALS: BP 119/60; PULSE 77; RESP 20; TEMP 97.9; O2SAT 98
--- NOTE | 2017-04-01 11:51 | CP.PCM.DIS ---
Provider - Provider Date of Admission: 03/31/17 21:27 Attending physician: Wes Cary Time Spent in preparation of Discharge (in minutes): 15 Hospital Course - Lab Results Lab Results: Most Recent Lab Values WBC 6.5 K/uL (4.8-10.8) 03/31/17 20:48 RBC 4.71 Mil/uL (4.40-5.90) 03/31/17 20:48 Hgb 13.9 g/dL (12.0-18.0) 03/31/17 20:48 Hct 42.2 % (35.0-51.0) 03/31/17 20:48 MCV 89.6 fl (80.0-94.0) 03/31/17 20:48 MCH 29.6 pg (27.0-31.0) 03/31/17 20:48 MCHC 33.1 g/dL (33.0-37.0) 03/31/17 20:48 RDW 13.5 % (11.5-14.5) 03/31/17 20:48 Plt Count 156 K/uL (130-400) 03/31/17 20:48 MPV 10.0 fl (7.2-11.7) 03/31/17 20:48 Neut % (Auto) 58.8 % (50.0-75.0) 03/31/17 20:48 Lymph % (Auto) 27.1 % (20.0-40.0) 03/31/17 20:48 [place] % (Auto) 13.2 % (0.0-10.0) H 03/31/17 20:48 Eos % (Auto) 0.8 % (0.0-4.0) 03/31/17 20:48 Baso % (Auto) 0.1 % (0.0-2.0) 03/31/17 20:48 Neut # 3.8 K/uL (1.8-7.0) 03/31/17 20:48 Lymph # 1.8 K/uL (1.0-4.3) 03/31/17 20:48 [place] # 0.9 K/uL (0.0-0.8) H 03/31/17 20:48 Eos # 0.1 K/uL (0.0-0.7) 03/31/17 20:48 Baso # 0.0 K/uL (0.0-0.2) 03/31/17 20:48 Sodium 140 mmol/l (132-148) 03/31/17 20:48 Potassium 4.4 MMOL/L (3.6-5.0) 03/31/17 20:48 Chloride 101 mmol/L (98-107) 03/31/17 20:48 Carbon Dioxide 28 mmol/L (22-30) 03/31/17 20:48 Anion Gap 15 (10-20) 03/31/17 20:48 BUN 17 mg/dl (9-20) 03/31/17 20:48 Creatinine 0.9 mg/dL (0.8-1.5) 03/31/17 20:48 Est GFR ( Amer) > 60 03/31/17 20:48 Est GFR (Non-Af Amer) > 60 03/31/17 20:48 Random Glucose 94 mg/dL (75-110) 03/31/17 20:48 Calcium 9.7 mg/dL (8.4-10.2) 03/31/17 20:48 Total Bilirubin 0.5 mg/dl (0.2-1.3) 03/31/17 20:48 AST 50 U/L (17-59) 03/31/17 20:48 ALT 49 U/L (21-72) 03/31/17 20:48 Alkaline Phosphatase 77 U/L (38-126) 03/31/17 20:48 Total Creatine Kinase 536 U/L (55-170) H 04/01/17 09:30 Total Protein 7.3 G/DL (6.3-8.2) 03/31/17 20:48 Albumin 4.6 g/dL (3.5-5.0) 03/31/17 20:48 Globulin 2.7 gm/dL (2.2-3.9) 03/31/17 20:48 Albumin/Globulin Ratio 1.7 (1.0-2.1) 03/31/17 20:48 Urine Color Colorless (YELLOW) 03/31/17 20:48 Urine Clarity Clear (Clear) 03/31/17 20:48 Urine pH 7.0 (5.0-8.0) 03/31/17 20:48 Ur Specific [place] < 1.005 (1.003-1.030) 03/31/17 20:48 Urine Protein Negative mg/dL (NEGATIVE) 03/31/17 20:48 Urine Glucose (UA) Neg mg/dL (Normal) 03/31/17 20:48 Urine Ketones Negative mg/dL (NEGATIVE) 03/31/17 20:48 Urine Blood Negative (NEGATIVE) 03/31/17 20:48 Urine Nitrate Negative (NEGATIVE) 03/31/17 20:48 Urine Bilirubin Negative (NEGATIVE) 03/31/17 20:48 Urine Urobilinogen 0.2-1.0 mg/dL (0.2-1.0) 03/31/17 20:48 Ur Leukocyte Esterase Neg Magui/uL (Negative) 03/31/17 20:48 Urine RBC (Auto) < 1 /hpf (0-3) 03/31/17 20:48 Urine Microscopic WBC < 1 /hpf (0-5) 03/31/17 20:48 - Hospital Course Hospital Course: 26 years old male with hx of SVT s/p ablation, last admitted to the [facility] on 01/28/17 and discharged on 01/31/17 with Dx of Rhabdomyolysis, Comes with one day of soreness to anterior aspect of both thighs. This started after he did his exercises .CPK found to be elevated . Patient on observation and started on IVFPtaientg hemodynamically stable, afebrile, pain improved and CPK trended down to 536 Will discharge patient home Avoid physical exercise for 3 -4 days.Continue oral hydration 1. Early Rhabdomyolysis. 2. Myalgias of the Quadriceps bilaterally secondary to rhabdo - Discharge Exam - Head Exam Head Exam: ATRAUMATIC, NORMAL INSPECTION, NORMOCEPHALIC - Eye Exam Eye Exam: EOMI, Normal appearance, PERRL Pupil Exam: NORMAL ACCOMODATION - ENT Exam ENT Exam: Mucous Membranes Moist, Normal Exam - Neck Exam Neck exam: Full Rom, Normal Inspection - Respiratory Exam Respiratory Exam: Clear to PA & Lateral, NORMAL BREATHING PATTERN. absent: Rales, Rhonchi, Wheezes - Cardiovascular Exam Cardiovascular Exam: REGULAR RHYTHM, RRR, +S1, +S2. absent: JVD - GI/Abdominal Exam GI & Abdominal Exam: Normal Bowel Sounds, Soft. absent: Distended, Guarding, Rebound, Tenderness - Rectal Exam Rectal Exam: Deferred - Extremities Exam Extremities exam: normal capillary refill, normal inspection, pedal pulses present - Back Exam Back exam: NORMAL INSPECTION - Neurological Exam Neurological exam: Alert, CN II-XII Intact, Oriented x3, Reflexes Normal - Psychiatric Exam Psychiatric exam: Normal Affect, Normal Mood - Skin Skin Exam: Dry, Intact, Normal Color, Warm Discharge Plan - Follow Up Plan Condition: GOOD Disposition: HOME/ ROUTINE Patient education suggested?: Yes Instructions: Liquids and Hydration for Athletes (DC), Rhabdomyolysis (DC) Additional Instructions: follow up with PMD in one week no strenuous exercise or activity drink plenty of liquids Seek medical attention if pain in muscles reoccur or urine has blood or for any other concerns Referrals: Philippe Shaw MD [Staff Provider] -
== END 2017-04-01 12:30 | disposition home or self-care (01) ==
LOC: H.ER 20:15 → H.ERHOLD 21:27 → H.PEDS 23:28
PROVIDERS: ADMIT Internal Medicine; ATTEND Internal Medicine
DX: M62.82 Rhabdomyolysis (principal)
CPT/HCPCS: 36415; 80053; 81003; 82550; 83874; 85025; 96360; 99282; G0378; J7040

== ENCOUNTER 2017-04-18 10:52 | Emergency (ER) | payer BC ==
[2017-04-18 11:07] VITALS: BP 119/73; PULSE 82; RESP 16; TEMP 97.7; O2SAT 100
[2017-04-18 11:08] VITALS: BMI 23.7
[2017-04-18 11:45] LABS: BASO % 0.1 % (0.0-2.0); HEMATOCRIT 42.7 % (35.0-51.0); LYMPH # 0.9 K/uL (1.0-4.3); LYMPH % 7.6 % (20.0-40.0); MEAN CELL VOLUME 89.6 fl (80.0-94.0); MEAN CORPUSCULAR HEMOGLOBIN 29.3 pg (27.0-31.0); MEAN CORPUSCULAR HGB CONC 32.7 g/dL (33.0-37.0); MEAN PLATELET VOLUME 9.8 fl (7.2-11.7); MONO # 0.7 K/uL (0.0-0.8); MONO % 5.9 % (0.0-10.0); NEUT # 10.6 K/uL (1.8-7.0); NEUT % 86.4 % (50.0-75.0); PLATELET COUNT 167 K/uL (130-400); RED CELL DISTRIBUTION WIDTH 13.2 % (11.5-14.5); WHITE BLOOD COUNT 12.2 K/uL (4.8-10.8)
--- NOTE | 2017-04-18 11:48 | ED PDOC ---
HPI: Male Pain Time Seen by Provider: 04/18/17 11:12 Chief Complaint (Nursing): Male Genitourinary Chief Complaint (Provider): Male Genitourinary History Per: Patient History/Exam Limitations: no limitations Onset/Duration Of Symptoms: Days (x1) Current Symptoms Are (Timing): Still Present Additional Complaint(s): Leif Uribe is a 26 year old male with a history of rhabdomyolysis presenting to the ED for an evaluation of a concern for recurring rhabdomyolysis. The patient states yesterday he was go karting all day and then today he went to the gym where he felt tired and noticed a decreased urine output. The patient has no other medical complaints. PMD: Philippe Shaw MD Past Medical History Reviewed: Historical Data, Nursing Documentation, Vital Signs Vital Signs: Last Vital Signs Temp 97.7 F 04/18/17 11:07 Pulse 82 04/18/17 11:07 Resp 16 04/18/17 11:07 BP 119/73 04/18/17 11:07 Pulse Ox 100 04/18/17 11:07 - Medical History PMH: Cardia Arrhythmia Denies: HIV, Chronic Kidney Disease Other PMH: rhabdomyolysis - Family History Family History: States: Unknown Family Hx - Social History Current smoker - smoking cessation education provided: No Ex-Smoker (has not smoked in the last 12 months): No Alcohol: Occasional (drinks beer occasionally) Drugs: Denies - Immunization History Hx Tetanus Toxoid Vaccination: No Hx Influenza Vaccination: No Hx Pneumococcal Vaccination: No - Home Medications Home Medications: Ambulatory Orders Medication Instructions Recorded No Known Home Med 01/28/17 - Allergies Allergies/Adverse Reactions: Allergies Allergy/AdvReac Type Severity Reaction Status Date / Time No Known Allergies Allergy Verified 03/31/17 21:36 Review of Systems ROS Statement: Except As Marked, All Systems Reviewed And Found Negative Genitourinary Male: Positive for: Dysuria (decreased urine output ) Physical Exam - Reviewed Nursing Documentation Reviewed: Yes Vital Signs Reviewed: Yes - Physical Exam Appears: Positive for: Non-toxic, No Acute Distress Head Exam: Positive for: ATRAUMATIC, NORMOCEPHALIC Skin: Positive for: Normal Color, Warm, Dry Eye Exam: Positive for: Normal appearance, EOMI ENT: Positive for: Normal ENT Inspection Neck: Positive for: Normal, Painless ROM Cardiovascular/Chest: Positive for: Regular Rate, Rhythm Respiratory: Positive for: Normal Breath Sounds. Negative for: Respiratory Distress Gastrointestinal/Abdominal: Positive for: Normal Exam, Soft. Negative for: Tenderness Back: Positive for: Normal Inspection Extremity: Positive for: Normal ROM Neurologic/Psych: Positive for: Alert, Oriented - Laboratory Results Result Diagrams: 04/18/17 11:41 04/18/17 11:41 - ECG O2 Sat by Pulse Oximetry: 100 (RA) Pulse Ox Interpretation: Normal Medical Decision Making Medical Decision Making: Time: 11:12 Impression: Fatigue and oligouria Differential diagnosis includes but is not limited to rhabdomyolysis and acute renal failure. Plan: * BMP * CPK * CBC (With Differential) * Reevaluation Scribe Attestation: Documented by Ermelinda Johnson, acting as a scribe for Esthela Ferrell MD. Provider Scribe Attestation: All medical record entries made by the Scribe were at my direction and personally dictated by me. I have reviewed the chart and agree that the record accurately reflects my personal performance of the history, physical exam, medical decision making, and the department course for this patient. I have also personally directed, reviewed, and agree with the discharge instructions and disposition. Disposition - Clinical Impression Clinical Impression: Muscle pain, Elevated CPK - Patient ED Disposition Is Patient to be Admitted: No Doctor Will See Patient In The: Office Counseled Patient/Family Regarding: Studies Performed, Diagnosis, Need For Followup - Disposition Referrals: [facility] [Outside] Disposition: Routine/Home Disposition Time: 13:37 Condition: GOOD Additional Instructions: Follow up with your PCP in 2-3 days. Return for worsening. Drink plenty of fluids. Rest between work outs. Instructions: Rhabdomyolysis (ED)
[2017-04-18 11:58] LABS: BLOOD UREA NITROGEN 20 mg/dl (9-20); CALCIUM 9.7 mg/dL (8.4-10.2); CARBON DIOXIDE 26 mmol/L (22-30); CHLORIDE 98 mmol/L (98-107); GFR AFRICAN-AMERICAN > 60; GLUCOSE,RANDOM 102 mg/dL (75-110); POTASSIUM 4.7 MMOL/L (3.6-5.0); SODIUM 134 mmol/l (132-148)
[2017-04-18 12:22] LABS: NEUTROPHIL 87 % (42-75); REACTIVE LYMPHOCYTES 3 % (0-0); TOTAL CELLS COUNTED 100
== END 2017-04-18 13:47 | disposition home or self-care (01) ==
LOC: H.ER 10:52
DX: R74.8 Abnormal levels of other serum enzymes (principal)

== ENCOUNTER 2017-08-31 05:24 | Emergency (ER) | payer BC ==
[2017-08-31 05:25] VITALS: BMI 23.7
[2017-08-31 05:36] VITALS: BP 148/68; PULSE 130; RESP 18; TEMP 102.8; O2SAT 100
--- NOTE | 2017-08-31 05:57 | ED PDOC ---
HPI: General Adult Time Seen by Provider: 08/31/17 05:33 Chief Complaint (Nursing): Flu-like Symptoms Chief Complaint (Provider): Flu-like symptoms History Per: Patient (x 2 days) History/Exam Limitations: no limitations Onset/Duration Of Symptoms: Days Current Symptoms Are (Timing): Still Present Additional Complaint(s): Leif is a 26 year old , male who presents to the emergency department with flu-like symptoms for 2 days. Patient has a history of SVT s/p ablation and rhabdomyolysis. Patient reports fever, chills and body aches for the past 2 days. Reports did not medicate with tylenol or advil. Denies diarrhea or vomiting. Patient states he is eating well. Patient did not receive flu vaccine this year. PMD: Provider TBD Past Medical History Reviewed: Historical Data, Nursing Documentation, Vital Signs Vital Signs: Last Vital Signs Temp 102.8 F H 08/31/17 05:34 Pulse 130 H 08/31/17 05:34 Resp 18 08/31/17 05:34 BP 148/68 08/31/17 05:34 Pulse Ox 100 08/31/17 05:34 - Medical History PMH: Cardia Arrhythmia (SVT with ablation), Chronic Kidney Disease Denies: HIV Other PMH: rhabdomyolysis - Surgical History Surgical History: No Surg Hx - Family History Family History: States: Unknown Family Hx - Social History Current smoker - smoking cessation education provided: No Alcohol: None Drugs: Denies - Immunization History Hx Tetanus Toxoid Vaccination: No Hx Influenza Vaccination: No Hx Pneumococcal Vaccination: No - Home Medications Home Medications: Ambulatory Orders Medication Instructions Recorded Oseltamivir [Tamiflu] 75 mg PO BID #10 cap 08/31/17 - Allergies Allergies/Adverse Reactions: Allergies Allergy/AdvReac Type Severity Reaction Status Date / Time No Known Allergies Allergy Verified 08/31/17 05:34 Review of Systems ROS Statement: Except As Marked, All Systems Reviewed And Found Negative Constitutional: Positive for: Fever, Chills, Other (Body aches) ENT: Positive for: Nose Congestion Gastrointestinal: Negative for: Vomiting, Diarrhea Physical Exam - Reviewed Nursing Documentation Reviewed: Yes Vital Signs Reviewed: Yes - Physical Exam Appears: Positive for: Non-toxic Head Exam: Positive for: ATRAUMATIC, NORMAL INSPECTION, NORMOCEPHALIC Skin: Positive for: Normal Color Eye Exam: Positive for: Normal appearance ENT: Positive for: Normal ENT Inspection Neck: Positive for: Normal Cardiovascular/Chest: Positive for: Tachycardia Respiratory: Positive for: Normal Breath Sounds. Negative for: Respiratory Distress Gastrointestinal/Abdominal: Positive for: Normal Exam Back: Positive for: Normal Inspection Extremity: Positive for: Normal ROM. Negative for: Deformity Neurologic/Psych: Positive for: Alert, Oriented, Other (Febrile) - ECG O2 Sat by Pulse Oximetry: 100 (RA) Pulse Ox Interpretation: Normal Medical Decision Making Medical Decision Making: Time: 05:42 Impression: 26 year old male with Influenza Plan: - Tamiflu Cap - Tylenol 325mg tab Upon provider evaluation patient is medically stable, and requires no further treatment in the ED at this time. Patient will be discharged with Rx for Tamiflu. Counseling was provided and all questions were answered regarding diagnosis. There is agreement to discharge plan. Return if symptoms persist or worsen. Scribe Attestation: Documented by Kris Go, acting as a scribe for Eric Juarez MD Provider Scribe Attestation: All medical record entries made by the Scribe were at my direction and personally dictated by me. I have reviewed the chart and agree that the record accurately reflects my personal performance of the history, physical exam, medical decision making, and the department course for this patient. I have also personally directed, reviewed, and agree with the discharge instructions and disposition. Disposition - Clinical Impression Clinical Impression: Influenza - Patient ED Disposition Is Patient to be Admitted: No - Disposition Referrals: Philippe Shaw MD [Primary Care Provider] - Disposition: Routine/Home Disposition Time: 05:50 Condition: STABLE Prescriptions: Oseltamivir [Tamiflu] 75 mg PO BID #10 cap Instructions: Influenza (ED) Forms: [employer] ([place])
== END 2017-08-31 05:59 | disposition home or self-care (01) ==
LOC: H.ER 05:24
DX: J11.1 Influenza due to unidentified influenza virus with other respiratory manifestations (principal); I47.1 Supraventricular tachycardia; N18.9 Chronic kidney disease, unspecified